=== PATIENT | female | born 1990 | race Caucasian/White ===

== ENCOUNTER 2017-10-15 21:29 | Emergency (ER) | payer SELFPAY, OTHER ==
[2017-10-15 21:58] LABS: Bilirubin Negative (Negative); Blood, Urine Negative (Negative); Clarity CLOUDY (Clear); Glucose, Urine (Dipstick) Negative (Negative); Leukocyte Negative (Negative); Nitrite Negative (Negative); Protein, Urine (Dipstick) Negative (Neg-Trace); Urobilinogen 0.2 mg/dL (0.2-1.0); pH, Urine 5.5 (5.0-9.0)
[2017-10-15 22:00] LABS: Pregnancy Test - Urine (BHCG) Negative (Negative); Pregu Control Background? CLEAR/WHITE (CLR/WHITE); Pregu Control Bar Appear? YES (CONTROL BAR)
[2017-10-15 22:26] LABS: #Basophils 0.1 thou/uL (0.0-0.2); #Eosinphils 0.2 thou/uL (0.0-0.7); #Lymphocytes 2.7 thou/uL (1.20-3.40); #Monocytes 0.8 thou/uL (0.11-0.59); #Neutrophils 7.7 thou/uL (1.40-6.50); %Basophils 0.5 % (0.0-1.0); %Lymphocytes 23.3 % (21.0-51.0); %Monocytes 6.8 % (0.0-10.0); %Neutrophils 67.4 % (42.0-75.0); Hemoglobin 12.6 g/dL (12.0-16.0); Mean Corpuscular HGB CONC 31.4 g/dL (32.0-36.0); Mean Corpuscular Hemoglobin 23.9 pg (27.0-31.0); Mean Corpuscular Volume 76.2 fl (81.0-99.0); Mean Platelet Volume 6.8 fL (7.4-10.4); Platelet Count 357 thou/uL (130-400); RBC Distribution Width 15.7 % (11.5-14.5); Red Blood Cell (RBC) Count 5.27 mill/uL (4.20-5.40); White Blood Cell (WBC) Count 11.4 thou/uL (4.8-10.8)
[2017-10-15 22:44] LABS: ALT (SGPT) 21 U/L (8-55); AST (SGOT) 15 U/L (5-34); Albumin 3.6 g/dL (3.5-5.0); Alkaline Phosphatase 81 U/L (40-150); Anion Gap 13 mmol/L (10-20); BUN (Urea Nitrogen) 11 mg/dL (7.0-18.7); Bilirubin, Total 0.3 mg/dL (0.2-1.2); Calc. Creatinine Clearance 0 mL/min (70-130); Calcium 9.5 mg/dL (7.8-10.44); Carbon Dioxide 21 mmol/L (22-29); Chloride 108 mmol/L (98-107); Estimated GFR-MDRD Greater than 90; Globulin 3.4 g/dL (2.4-3.5); Glucose 117 mg/dL (70-105); Lipase 23 U/L (8-78); Potassium 4.2 mmol/L (3.5-5.1); Sodium 138 mmol/L (136-145)
[2017-10-16] MEDS ORDERED: Famotidine 20 MG TAB ONE (01:00)
[2017-10-16] MEDS ORDERED: Mag-Al 1200 mg/1200 mg/30 ML UDCUP ONE (01:01)
[2017-10-16] MEDS ORDERED: Lidocaine Viscous Sol 2% 15 ml UD Cup ONE (01:01)
[2017-10-16] MEDS ORDERED: Ondansetron ODT 8 MG TAB ONE (03:40)
--- NOTE | 2017-10-16 07:48 | CT ---
PRELIMINARY REPORT/[facility]/EMERGENCY AFTER HOURS PROCEDURE: EXAM: CT Abdomen and Pelvis With Intravenous Contrast EXAM DATE/TIME: Exam ordered 10/16/2017 2:45 AM CLINICAL HISTORY: 27 years old, female; Signs and symptoms; Nausea and vomiting; Patient HX: Er 1; X2 weeks pt vomiting and diarrhea after eating 'raw meat'. Diarrhea x20/day, hasn't vomited in couple days. Pt concerned with "burping and it smells like feces. ". TECHNIQUE: Axial computed tomography images of the abdomen and pelvis with intravenous contrast. Coronal reformatted images were created and reviewed. CONTRAST: 95 mL of ISOVUE 370 administered intravenously. COMPARISON: No relevant prior studies available. FINDINGS: Lower thorax: The visualized portions of the lung bases are normal. ABDOMEN: Liver: There are no focal liver lesions present. Gallbladder and bile ducts: The gallbladder is normal. There is no evidence of biliary ductal dilatio n. No calcified stones. Pancreas: The pancreas is normal. No ductal dilation. Spleen: The spleen is normal. Adrenals: The adrenal glands are normal. Kidneys and ureters: The kidneys are normal. No hydronephrosis. Stomach and bowel: The stomach is normal. The duodenum is unremarkable. The colon is normal. No obstruction. No mucosal thickening. Appendix: A normal appendix is identified. PELVIS: Bladder: The bladder is normal. Reproductive: The uterus is normal. There is a 1.5 cm complex cyst in the LEFT ovary. ABDOMEN and PELVIS: Intraperitoneal space: Normal. No free air. No significant fluid collection. Bones/joints: No acute fracture. No dislocation. Soft tissues: Normal. Vasculature: Normal. No abdominal aortic aneurysm. Lymph nodes: There are innumerable mesenteric lymph nodes which are nonspecific but do not reach path ological size criteria and are probably reactive from infectious or inflammatory bowel process. IMPRESSION: There are innumerable mesenteric lymph nodes which are nonspecific but do not reach pathological size criteria and are probably reactive from infectious or inflammatory bowel process. Thank you for allowing us to participate in the care of your patient. Dictated and Authenticated by: Joss Mendoza MD 10/16/2017 3:19 AM Central Time ([place] & [place]) FINAL REPORT CT ABDOMEN AND PELVIS WITH ORAL AND IV CONTRAST: I agree with the preliminary report given by Dr. Joss Mendoza of [facility]. POS: [facility]
[2017-10-16] MEDS ORDERED: Iopamidol 370 76% 50 ML VIAL FS ONE (11:50)
[2017-10-16] MEDS ORDERED: ISOVUE-370 76%-LOCM 1 ML ONE (11:50)
== END 2017-10-16 03:44 | disposition home or self-care (01) ==
LOC: ERS 21:29
DX: K52.9 Noninfective gastroenteritis and colitis, unspecified (principal); F41.9 Anxiety disorder, unspecified; F17.210 Nicotine dependence, cigarettes, uncomplicated; E28.2 Polycystic ovarian syndrome
CPT/HCPCS: 36415; 74177; 80053; 81003; 81025; 83690; 85025

== ENCOUNTER 2017-11-05 23:41 | Emergency (ER) | payer SELFPAY ==
[2017-11-06] MEDS ORDERED: hydrOXYzine 25 MG TAB PO SCH (01:45)
--- NOTE | 2017-11-09 17:49 | EKG ---
Test Reason : Blood Pressure : / mmHG Vent. Rate : 102 BPM Atrial Rate : 102 BPM P-R Int : 132 ms QRS Dur : 084 ms QT Int : 340 ms P-R-T Axes : 033 028 036 degrees QTc Int : 443 ms Sinus tachycardia Possible Left atrial enlargement Possible Anterior infarct , age undetermined Abnormal ECG Confirmed by DANNY FISCHER D.O. ([id number]), editorial manager LANDON MILLARD ([id number]) on 11/09/2017 5:48:19 PM Referred By: Confirmed By:DANNY FISCHER D.O.
== END 2017-11-06 01:46 | disposition home or self-care (01) ==
LOC: ERS 23:41
DX: F41.0 Panic disorder [episodic paroxysmal anxiety] (principal); R55 Syncope and collapse; I10 Essential (primary) hypertension; F17.210 Nicotine dependence, cigarettes, uncomplicated
CPT/HCPCS: 93005

== ENCOUNTER 2017-11-18 13:05 | Emergency (ER) | payer SELFPAY, OTHER ==
[2017-11-18] MEDS ORDERED: Benzonatate 100 MG CAP ONE (17:20)
[2017-11-18] MEDS ORDERED: Ketorolac Tromethamine 30 MG/ML VIAL ONE (17:20)
== END 2017-11-18 18:54 | disposition home or self-care (01) ==
LOC: ERS 13:05
DX: J20.9 Acute bronchitis, unspecified (principal); H65.93 Unspecified nonsuppurative otitis media, bilateral; J06.9 Acute upper respiratory infection, unspecified; E28.2 Polycystic ovarian syndrome; F41.9 Anxiety disorder, unspecified; F17.210 Nicotine dependence, cigarettes, uncomplicated
CPT/HCPCS: 87804; 96361; 96374; J1885